=== PATIENT | female | born 1990 | race African-American/Black ===

== ENCOUNTER 2017-11-11 09:13 | Inpatient (IN) | payer MEDICAID ==
[2017-11-11] MEDS ORDERED: RINGERS SOLUTION,LACTATED 1,000 ML IV PRN (10:05)
[2017-11-11] MEDS ORDERED: PENICILLIN G-K 5 MILLION UNIT VIAL ONE ×2 (10:05→15:01)
[2017-11-11] MEDS ORDERED: RINGERS SOLUTION,LACTATED 500 ML IV PRN (10:05)
[2017-11-11] MEDS ORDERED: PENICILLIN G POTASSIUM 5,000,000 UNIT in DEXTROSE 5%-WATER 100 ML IV ONE (10:06)
[2017-11-11 10:17] LABS: APPEARANCE,URINE SLIGHTLY-CLOUDY; BILIRUBIN,URINE NEGATIVE (NEGATIVE); COLOR,URINE YELLOW; GLUCOSE, URINE NEGATIVE (NEGATIVE); KETONES,URINE NEGATIVE (NEGATIVE); LEUKOCYTE ESTERASE,URINE LARGE (NEGATIVE); NITRITE,URINE NEGATIVE (NEGATIVE); PROTEIN,URINE NEGATIVE (NEGATIVE); URINE SPECIFIC GRAVITY 1.011; UROBILINOGEN,URINE NEGATIVE mg/dL (<2.0)
[2017-11-11 10:30] LABS: URINE AMPHETAMINES SCREEN NEGATIVE; URINE BARBITURATES SCREEN NEGATIVE; URINE BENZODIAZEPINES SCREEN NEGATIVE; URINE COCAINE SCREEN NEGATIVE; URINE MARIJUANA (THC) SCREEN NEGATIVE; URINE METHADONE SCREEN NEGATIVE; URINE PHENCYCLIDINE SCREEN NEGATIVE
[2017-11-11 10:52] LABS: ABSOLUTE BASOPHILS # (AUTO) 0.1 10^3/uL (0.0-0.2); ABSOLUTE EOSINOPHILS # (AUTO) 0.2 10^3/uL (0.0-0.6); ABSOLUTE LYMPHOCYTES (AUTO) 1.8 10^3/uL (0.5-4.7); ABSOLUTE MONOCYTES (AUTO) 0.8 10^3/uL (0.1-1.4); ABSOLUTE NEUT (AUTO) 5.4 10^3/uL (1.7-8.2); BASOPHILS % (AUTO) 1.1 % (0-2); HEMOGLOBIN 9.8 g/dL (12.0-15.5); LYMPHOCYTES % (AUTO) 21.9 % (13-45); MEAN CORPUSCULAR HEMOGLOBIN 27.8 pg (27.0-33.4); MEAN CORPUSCULAR HGB CONC 33.7 g/dL (32.0-36.0); MEAN CORPUSCULAR VOLUME 82 fl (80-97); MONOCYTES % (AUTO) 9.9 % (3-13); PLATELET COUNT 316 10^3/uL (150-450); RED BLOOD COUNT 3.52 10^6/uL (3.72-5.28); RED CELL DISTRIBUTION WIDTH 15.3 % (11.5-14.0); SEGMENTED NEUTROPHILS % (AUTO) 65.1 % (42-78); TOTAL CELLS COUNTED % (AUTO) 100 %; WHITE BLOOD COUNT 8.3 10^3/uL (4.0-10.5)
[2017-11-11 11:08] LABS: ALANINE AMINOTRANSFERASE 45 U/L (9-52); ALBUMIN 3.7 g/dL (3.5-5.0); ALKALINE PHOSPHATASE 85 U/L (38-126); ANION GAP 10 (5-19); ASPARTATE AMINO TRANSFERASE 28 U/L (14-36); BILIRUBIN,DIRECT 0.1 mg/dL (0.0-0.4); BILIRUBIN,TOTAL 0.1 mg/dL (0.2-1.3); BLOOD UREA NITROGEN 4 mg/dL (7-20); CALCIUM 9.5 mg/dL (8.4-10.2); CARBON DIOXIDE 22 mmol/L (22-30); CHLORIDE 105 mmol/L (98-107); GLUCOSE 75 mg/dL (75-110); LDH 345 U/L (313-618); POTASSIUM 3.8 mmol/L (3.6-5.0); SODIUM 137.4 mmol/L (137-145); TOTAL PROTEIN 6.4 g/dL (6.3-8.2); URIC ACID 3.8 mg/dL (2.5-6.2)
[2017-11-11 11:14] LABS: UR PRO/CREAT RATIO RESULT 0.2 mg/mg (0.0-0.2); URINE CREATININE 85.8 mg/dL (16-327); URINE PROTEIN 18.7 mg/dL (<12)
[2017-11-11] MEDS ORDERED: EPHEDRINE SULFATE INJ 50 MG/1 ML AMPULE ONE (13:24)
[2017-11-11] MEDS ORDERED: FENTANYL/BUPIVACAINE/NS/PF 200 MCG/100 ML RTUINJ EPI ONE (13:24)
[2017-11-11] MEDS ORDERED: BUPIVACAINE HCL 0.25 % INJ/PF (2.5 MG/1 ML) 30 ML VIAL ONE (13:24)
[2017-11-11] MEDS ORDERED: PENICILLIN G-K 5 MILLION UNIT VIAL IV SCH (14:00)
[2017-11-11] MEDS ORDERED: LIDOCAINE 2% INJ-PF (20 MG/ML) 10 ML AMPUL ONE ×2 (14:30→18:34)
[2017-11-11] MEDS ORDERED: OXYTOCIN/NORMAL SALINE 20 UNIT/1,000 ML RTUINJ ONE (15:01)
[2017-11-11] MEDS ORDERED: AZITHROMYCIN INJ 500 MG VIAL IV ONE (15:01)
[2017-11-11] MEDS ORDERED: MISOPROSTOL 0.2 MG TABLET ONE (15:01)
[2017-11-11] MEDS ORDERED: LIDOCAINE 1% INJ-PF (10 MG/ML) 30 ML SDV ONE (15:01)
[2017-11-11] MEDS ORDERED: ONDANSETRON HCL INJ/PF 4 MG/2 ML SDV ONE (15:49)
[2017-11-11] MEDS ORDERED: AZITHROMYCIN 500 MG in DEXTROSE 5%-WATER 250 ML IV SCH (16:00)
[2017-11-11] MEDS ORDERED: PENICILLIN G POTASSIUM 2,500,000 UNIT in DEXTROSE 5%-WATER 50 ML IV SCH (16:21)
[2017-11-11] MEDS ORDERED: OXYTOCIN/NORMAL SALINE 20 UNIT/1,000 ML RTUINJ IV PRN ×2 (17:56→18:56)
[2017-11-11] MEDS ORDERED: ZOLPIDEM TARTRATE 5 MG TABLET PO PRN (18:56)
[2017-11-11] MEDS ORDERED: DIPH/PERTUSS(ACELL)/TETANUS VAC/PF 0.5 ML SYR (>=10YO) IM PRN (18:56)
[2017-11-11] MEDS ORDERED: MEASLES,MUMPS&RUBELLA VACC/PF 0.5 ML VIAL SUBCUT PRN (18:56)
[2017-11-11] MEDS ORDERED: ACETAMINOPHEN WITH CODEINE #3 TABLET PO PRN ×2 (18:56)
[2017-11-11] MEDS ORDERED: BENZOCAINE/MENTHOL AEROSOL SPRAY 56 ML TOP PRN (18:56)
[2017-11-11] MEDS ORDERED: DIBUCAINE 1% OINTMENT 28 GM TP PRN (18:56)
--- NOTE | 2017-11-11 19:54 | Delivery Summary ---
Del Sum A-C Datetime Report Generated by CPN: 11/11/2017 19:54 DELIVERY PERSONNEL DELIVERY PERSONNEL: [id number] Delivery Doctor:: Vika Alston CNM Nurse Technical Inspector Certified:: Vika Alston CNM Labor and Delivery Nurse:: Kanchan Wheeler RNconstruction or leak gang laborer Nurse:: Darlene Moulton RN Nursery Nurse:: Tiffanie Zhang RN Roto Mixer Operator/CONTOUR BAND SAW OPERATOR VERTICAL: Kelley Singh, ST Additional Personnel: : Sanjana Garcia, RNC MATERNAL INFORMATION Delivery Anesthesia: Epidural Medications After Delivery: Pitocin Bolus-Please Comment Meds After Delivery Comment: Pitocin 20 units in 1000 ml nss open for bolus Estimated Blood Loss (ml): 200 Maternal Complications: None Provider Comments: of viable female infant over intact perineum, head, shoulders, and body delivered without difficulty. with spontaneous cry and respirations, cord clamped X2, cut free, infant handed off to nursery staff. Spontaneous delivery of placenta via goetz mechanism, appears intact 3 VC, vagina and perineum inspected, no lacerations noted. Mother and infant in stable condition, routine pp care. LABOR SUMMARY EDC: 12/15/2017 00:00 No. Babies in Womb: 1 Attempted: No Labor Anesthesia: Epidural LABOR INFORMATION Reason for Induction: Not Applicable Onset of Labor: 11/11/2017 12:30 Complete Dilatation: 11/11/2017 18:35 Oxytocin: Augmentation Group B Beta Strep: positive Antibiotics # of Doses: 2 Antibiotics Time of Last Dose: 153 Name of Antibiotic Given: penicillin Steroids Given: None Reason Steroids Not Administered: Not Applicable MEMBRANES Membranes Rupture Method: Artificial Rupture of Membranes: 11/11/2017 16:45 Length of Rupture (hr): 1.97 Amniotic Fluid Color: Clear Amniotic Fluid Amount: Moderate Amniotic Fluid Odor: None STAGES OF LABOR Stage 1 hr: 6 Stage 1 min: 5 Stage 2 hr: 0 Stage 2 min: 8 Stage 3 hr: 0 Stage 3 min: 3 Total Time in Labor hr: 6 Total Time in Labor min: 16 VAGINAL DELIVERY Episiotomy: None Laceration #1: None Laceration Extension #1: N/A Laceration #2: None Laceration #3: None Laceration Repair: Not Applicable Sponge Count Correct: Yes Sharps Count Correct: Yes CSECTION DELIVERY Primary Indication: N/A Secondary Indication: N/A CSection Incidence: N/A Labor: N/A Elective: N/A CSection Incision: N/A BABY A INFORMATION Delivery Date/Time: 11/11/2017 18:43 Method of Delivery: Vaginal Born in Route : No : N/A Forceps: N/A Vacuum Extraction: N/A Shoulder Dystocia : No PRESENTATION/POSITION BABY A Presentation: Cephalic Cephalic Presentation: Vertex Vertex Position: Right Occipital Anterior Breech Presentation: N/A PLACENTA INFORMATION BABY A Placenta Delivery Time : 11/11/2017 18:46 Placenta Method of Delivery: Spontaneous Placenta Status: Delivered SCORES BABY A Heart Rate 1 min: >100 bpm Resp Effort 1 min: Good Cry Reflex Irritability 1 min: Cough or Sneeze or Pulls Away Muscle Tone 1 min: Active Motion Color 1 min: Blue/Pale SCORE 1 MIN: 8 Heart Rate 5 min: >100 bpm Resp Effort 5 min: Good Cry Reflex Irritability 5 min: Cough or Sneeze or Pulls Away Muscle Tone 5 min: Active Motion Color 5 min: Body Pulpotio Bareas, Extremities Blue SCORE 5 MIN: 9 INFANT INFORMATION BABY A Gestational Age at Delivery: 35.1 Gestational Status: Late - 34- 36.6 Weeks Infant Outcome : Liveborn Infant Condition : Stable Infant Sex: Female IDENTIFICATION BABY A Infant Verification Date/Time: 11/11/2017 19:01 ID Band Number: [id number] Mother's Name Verified: Yes Infant RN Verifying : Sanjana Camp RNC Additional Verifying Personnel: Kanchan Wheeler RN WEIGHT/LENGTH BABY A Infant Birthweight (gm): 2190 Infant Weight (lb): 4 Weight (oz): 13 Infant Length (in): 18.00 Infant Length (cm): 45.72 CORD INFORMATION BABY A No. Cord Vessels: 3 Nuchal Cord : N/A Cord Blood Taken: Yes-For Storage (Mom's Blood type +) Infant Suction: None ASSESSMENT BABY A Infant Complications: None Physical Findings at Delivery: Within Normal Limits Respirations: Appears Normal Skin to Skin: No Change Over/ALS Called : No Care By: R Nakul RN Transferred To: Remains with Mother BABY B INFORMATION : N/A SIGNATURES Assignment: Elsa Orellana MD Signature: with User ID: [email or web address] : with User ID: [email or web address]
[2017-11-11] MEDS ORDERED: IBUPROFEN 800 MG TABLET ONE (20:47)
[2017-11-11] MEDS: IBUPROFEN 800 MG TABLET PO SCH (20:49)
--- NOTE | 2017-11-11 21:22 | Admission Physical ---
Datetime Report Generated by CPN: 11/11/2017 21:22 CURRENT ADMISSION Hx Assessment: The History has been Reviewed and is Current Chief Complaint: Uterine Contractions Indication for Induction: Not Applicable Indication for Induction: , Intrauterine ; Active Labor; Intact Membranes Admit Plan: Admit to Unit; Initiate Labor Protocol ALLERGIES Medication Allergies: Yes Medication Allergies: red dye (11/11/2017) Medication Allergies: acetaminophen (11/18/2012) Latex: No Latex Allergies OBSTETRICAL HISTORY EDC: 12/15/2017 00:00 : 4 Para: 3 Term: 3 : 0 SAB: 0 IAB: 0 Ectopic: 0 Livin Cesareans: 0 VBACs: 0 Multiple Births: 0 Gestational Diabetes: No Rh Sensitization: No Incompetent Cervix: No GRIS: No Infertility: No ART Treatment: No Uterine Anomaly: No IUGR: No Hx Previous C/S: No Macrosomia: No Hx Loss/Stillborn: No PIH: Yes Hx : No Placenta Previa/Abruption: No Depression/PP Depression: Yes PTL/PROM: No Post Hemorrhage: No Current Procedures: Ultrasound; NST Obstetrical History Comments: - 2011 vacuum delivery - 2013 G3- 2015 G4- current SEE RECORDS Alcohol: Yes Alcohol Comments: drank beer up until 3 months when pt was not planning on keeping baby Marijuana : No Cocaine: No Other Illicit Drugs: No Cigarettes: Current Everyday Smoker. [id number] MEDICAL HISTORY Diabetes: No Blood Transfusion: No Pulmonary Disease (Asthma, TB): No Breast Disease: No Hypertension: Yes Nurse Liaison Surgery: No Heart Disease: No Hosp/Surgery: No Autoimmune Disorder: No Anesthetic Complications: No Kidney Disease: No Abnormal Pap Smear: No Neuro/Epilepsy: No Psychiatric Disorders: No Other Medical Diseases: No Hepatitis/Liver Disease: No Significant Family History: No Varicosities/Phlebitis: No Trauma/Violence : No Thyroid Dysfunction: Yes Medical History Comments: smoker, depression, quad screen positie for neural tube defects, anemia, GHTN, short interval , enlarged thyroid, significant ETOH exposure prior to 15 weeks, states she was supposed to take Iron for anemia but never did because she did not want to be constipated INFECTIOUS HISTORY Gonorrhea: No Genital Herpes: No Chlamydia: Yes Tuberculosis: No Syphilis: No Hepatitis: No HIV/AIDS Exposure: No Rash or Viral Illness: No HPV: No Infectious History Comments: Chlamydia AprilSeptember 2017 Treated in October PHYSICAL EXAM General: Normal HEENT: Normal Neurologic: Normal Thyroid: Deferred Heart: Normal Lungs: Normal Breast: Normal Back: Normal Abdomen: Normal Genitourinary Exam: Normal Extremities: Normal DTRs: Normal Pelvic Type: Adequate Physical Exam Comments: pelvis proven to 7lbs 4 oz. Vital Signs: Reviewed VAGINAL EXAM Dilatation: 6 Effacement: 70 Station: 0 Contraction Comments: 5-7 MEMBRANES Membranes: Intact FETUS A EGA: 35.1 Monitoring: External US FHR- Baseline: 135 Variability: Moderate 6-25bpm Accelerations: 15X15 Decelerations: None FHR Category: Category I Estimated Weight (gm): 2500 Presentation: Vertex Admit Comment: Pt presents with ctx every 4-5 minutes. Denies leaking, or bleeding, states active fetus. Cervical change from 5-7 cm. [facility]. 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 PIH with #2. Pt with elevated AFP this . GBS +, pcn + chlamydia 10/01/17, pt report tx, azithro IV 500 mg X1 now. Admit to L and D. PLANS FOR LABOR AND DELIVERY Labor and Delivery: None Pain Management: Epidural Feeding Preference: Breast Benefit of Breast Feed Discussed: Yes Circumcision: N/A INFORMED CONSENT Assignment: Elsa Orellana MD Signature: with User ID: [email or web address] : with User ID: [email or web address]
[2017-11-12] MEDS ORDERED: HYDRALAZINE HCL INJ/PF 20 MG/1 ML SDV IV ONE (05:00)
[2017-11-12] MEDS: IBUPROFEN 800 MG TABLET PO SCH ×2 (05:11→15:03)
[2017-11-12 07:29] LABS: HEMOGLOBIN 9.5 g/dL (12.0-15.5); MEAN CORPUSCULAR HEMOGLOBIN 27.7 pg (27.0-33.4); MEAN CORPUSCULAR VOLUME 81 fl (80-97); PLATELET COUNT 322 10^3/uL (150-450); RED BLOOD COUNT 3.45 10^6/uL (3.72-5.28); RED CELL DISTRIBUTION WIDTH 15.6 % (11.5-14.0); WHITE BLOOD COUNT 9.5 10^3/uL (4.0-10.5)
--- NOTE | 2017-11-12 09:30 | PDOC PROGRESS REPORT ---
Subjective-OB Subjective: Post Delivery Day: 27 year old. Denies any needs at this time Physical Exam (OB) Vital Signs: Temp Pulse Resp BP Pulse Ox 98.1 F 72 16 117/68 100 11/12/17 09:13 11/12/17 09:13 11/12/17 09:13 11/12/17 09:13 11/12/17 09:13 Intake & Output 11/11/17 11/12/17 11/13/17 06:59 06:59 06:59 Weight 67 kg - General General Appearance: Appears well - PIH/Pre-Eclampsia DTR's: 1 + Clonus: Negative Headache: Present Epigastric Pain: No Visual Changes: No - Lochia Lochia Amount: Scant < 10 ml Lochia Color: Rubra/Red - Abdomen Description: Soft, Round Hernia Present: No Bowel Sounds: Normoactive Flatus Presence: Present Stool: No Fundal Description: Firm, Midline Fundal Height: u/u - u/2 Objective-Diagnostic Laboratory: 11/12/17 07:07 11/11/17 10:37 11/11/17 11/11/17 11/11/17 08:30 10:37 10:37 WBC 8.3 RBC 3.52 L Hgb 9.8 L Hct 29.0 L MCV 82 MCH 27.8 MCHC 33.7 RDW 15.3 H Plt Count 316 Seg Neutrophils % 65.1 Lymphocytes % 21.9 Monocytes % 9.9 Eosinophils % 2.0 Basophils % 1.1 Absolute Neutrophils 5.4 Absolute Lymphocytes 1.8 Absolute Monocytes 0.8 Absolute Eosinophils 0.2 Absolute Basophils 0.1 Sodium 137.4 Potassium 3.8 Chloride 105 Carbon Dioxide 22 Anion Gap 10 BUN 4 L Creatinine 0.58 Est GFR ( Amer) > 60 Est GFR (Non-Af Amer) > 60 Glucose 75 Uric Acid 3.8 Calcium 9.5 Total Bilirubin 0.1 L AST 28 ALT 45 Alkaline Phosphatase 85 Total Protein 6.4 Albumin 3.7 Urine Color YELLOW Urine Appearance SLIGHTLY-CLOUDY Urine pH 7.0 Ur Specific [place] 1.011 Urine Protein NEGATIVE Urine Glucose (UA) NEGATIVE Urine Ketones NEGATIVE Urine Blood NEGATIVE Urine Nitrite NEGATIVE Ur Leukocyte Esterase LARGE H Urine WBC (Auto) 8 Urine RBC (Auto) 1 Blood Type Antibody Screen 11/11/17 11/12/17 10:37 07:07 WBC 9.5 RBC 3.45 L Hgb 9.5 L Hct 28.0 L MCV 81 MCH 27.7 MCHC 34.0 RDW 15.6 H Plt Count 322 Seg Neutrophils % Lymphocytes % Monocytes % Eosinophils % Basophils % Absolute Neutrophils Absolute Lymphocytes Absolute Monocytes Absolute Eosinophils Absolute Basophils Sodium Potassium Chloride Carbon Dioxide Anion Gap BUN Creatinine Est GFR ( Amer) Est GFR (Non-Af Amer) Glucose Uric Acid Calcium Total Bilirubin AST ALT Alkaline Phosphatase Total Protein Albumin Urine Color Urine Appearance Urine pH Ur Specific [place] Urine Protein Urine Glucose (UA) Urine Ketones Urine Blood Urine Nitrite Ur Leukocyte Esterase Urine WBC (Auto) Urine RBC (Auto) Blood Type B POSITIVE Antibody Screen NEGATIVE
[2017-11-12] MEDS: SENNOSIDES/DOCUSATE 8.6-50 MG 1 EACH TABLET PO SCH (09:53)
[2017-11-12] MEDS: DOCUSATE SODIUM 100 MG CAPSULE PO SCH ×2 (09:54→18:11)
[2017-11-12] MEDS: PRENATAL VITAMIN W DHA CAPSULE PO SCH (09:55)
[2017-11-12] MEDS: FERROUS SULFATE 325 MG TABLET PO SCH ×2 (09:55→18:11)
[2017-11-12 21:27] VITALS: BP 131/86
[2017-11-13] MEDS: IBUPROFEN 800 MG TABLET PO SCH ×3 (00:28→13:39)
[2017-11-13] MEDS: DOCUSATE SODIUM 100 MG CAPSULE PO SCH ×2 (09:40→17:31)
[2017-11-13] MEDS: FERROUS SULFATE 325 MG TABLET PO SCH ×2 (09:41→17:32)
[2017-11-13] MEDS: PRENATAL VITAMIN W DHA CAPSULE PO SCH (09:41)
[2017-11-13] MEDS: SENNOSIDES/DOCUSATE 8.6-50 MG 1 EACH TABLET PO SCH (09:41)
--- NOTE | 2017-11-13 11:19 | PDOC PROGRESS REPORT ---
Subjective-OB Subjective: Post Delivery Day: 27 year old. Denies any needs at this time. Ready to go home later today after baby is discharged. Physical Exam (OB) Vital Signs: Temp Pulse Resp BP Pulse Ox 98.2 F 76 18 131/86 H 100 11/12/17 20:32 11/12/17 20:32 11/12/17 20:32 11/12/17 20:32 11/12/17 16:12 Intake & Output 11/12/17 11/13/17 11/14/17 06:59 06:59 06:59 Intake Total 400 Balance 400 Weight 67 kg - PIH/Pre-Eclampsia DTR's: 1 + Clonus: Negative Headache: Absent Epigastric Pain: No Visual Changes: No - Lochia Lochia Amount: Scant < 10 ml Lochia Color: Rubra/Red - Abdomen Description: Soft, Round Hernia Present: No Bowel Sounds: Normoactive Flatus Presence: Present Stool: No Fundal Description: Firm, Midline Fundal Height: u/u - u/2 Objective-Diagnostic Laboratory: 11/12/17 07:07 11/11/17 10:37
--- NOTE | 2017-11-13 11:25 | PDOC DISCHARGE SUMMARY ---
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 Is this a current diagnosis for this admission?: Yes (3) Chlamydia infection affecting Is this a current diagnosis for this admission?: Yes (4) Group B streptococcal infection during Is this a current diagnosis for this admission?: Yes (5) Insufficient antepartum care Is this a current diagnosis for this admission?: Yes (6) delivery Is this a current diagnosis for this admission?: Yes (7) labor Is this a current diagnosis for this admission?: Yes Discharge Data - Discharge Medication Home Medications: Cetirizine HCl [Zyrtec] 10 mg PO PRN PRN 11/11/17 Vit,Calc76/Iron/Folic [Pnv 29-1 Tablet] 1 each PO DAILY 11/11/17 Gestational Age: 35.1 wks Reason(s) for Admission: Onset of Labor, Labor Procedures: Ultrasound Intrapartum Procedure(s): Spontaneous Vaginal Delivery - [place] Data Baby 1 Female at 1 minute: 8 at 5 minutes: 9 Weight: 2.183 kg Home with Mother: Yes Complications: Yes - 35 wk EGA - Diagnosis Test Laboratory: Temp Pulse Resp BP Pulse Ox 98.2 F 76 18 131/86 H 100 11/12/17 20:32 11/12/17 20:32 11/12/17 20:32 11/12/17 20:32 11/12/17 16:12 11/11/17 11/11/17 11/12/17 08:30 10:37 07:07 RBC 3.52 L 3.45 L Hgb 9.8 L 9.5 L Hct 29.0 L 28.0 L Urine Opiates Screen NEGATIVE - Discharge information/Instructions Discharge Activity: Activity As Tolerated, Balance Activity w/Rest, Pelvic Rest , Slowly Increase Activity, No tub bath Discharge Diet: Regular Disposition: HOME, SELF-CARE Follow up with: [facility] in: 4, Weeks
== END 2017-11-13 18:33 | disposition home or self-care (01) | DRG 774 ==
LOC: LC 09:13 → LR 12:19 → 2S 21:20
PROVIDERS: ADMIT Student in an Organized Health Care Education/Training Program; ATTEND Student in an Organized Health Care Education/Training Program
PROC: 10E0XZZ Delivery of Products of Conception, External Approach (ICD-10-PCS; principal; 2017-11-11)
DX: O60.14X0 Preterm labor third trimester with preterm delivery third trimester, not applicable or unspecified (principal); O98.82 Other maternal infectious and parasitic diseases complicating childbirth; O99.824 Streptococcus B carrier state complicating childbirth; O13.4 Gestational [pregnancy-induced] hypertension without significant proteinuria, complicating childbirth; O99.334 Smoking (tobacco) complicating childbirth; O99.02 Anemia complicating childbirth; O99.344 Other mental disorders complicating childbirth; D64.9 Anemia, unspecified; F32.9 Major depressive disorder, single episode, unspecified; F17.210 Nicotine dependence, cigarettes, uncomplicated; Z3A.35 35 weeks gestation of pregnancy; Z37.0 Single live birth
CPT/HCPCS: 36415; 80053; 80307; 81001; 82570; 83615; 84156; 84550; 85025; 85027; 86592; 86850; 86900; 86901; J0360; J0456; J2405; J2540; J2590; J3490; J7060

== ENCOUNTER 2017-12-26 07:13 | Emergency (ER) | payer MEDICAID ==
--- NOTE | 2017-12-26 08:29 | ER Document Report ---
HPI - HPI Patient complains to provider of: red eye, pink eye Onset: Yesterday Pain Level: 1 Context: 27 yo contact lense weared c/o right eye reddness, son has pink eye. Delivered 6 weeks ago, at [facility], no 6 week appt scheduled. Bottlefeeding. no hx PIH, has had some HTN between pregnancies. No chest pain, abd pain, headache. Associated Symptoms: None Exacerbated by: Denies Relieved by: Denies - ROS ROS below otherwise negative: Yes Systems Reviewed and Negative: Yes All other systems reviewed and negative - EENT EENT: REPORTS: Eye problems - right eye - REPRODUCTIVE Reproductive: DENIES: : Past Medical History - General Information source: Patient - Social History Smoking Status: Current Every Day Smoker Chew tobacco use (# tins/day): No Frequency of alcohol use: None Drug Abuse: None Lives with: Family Family History: None Patient has suicidal ideation: No Patient has homicidal ideation: No Neurological Medical History: Reports: Hx Migraine Renal/ Medical History: Denies: Hx Peritoneal Dialysis Surgical Hx: Negative - Immunizations Hx Diphtheria, Pertussis, Tetanus Vaccination: Yes Vertical Provider Document - CONSTITUTIONAL Agree With Documented VS: Yes Exam Limitations: No Limitations General Appearance: No Apparent Distress - INFECTION CONTROL TRAVEL OUTSIDE OF THE [place] IN LAST 30 DAYS: No - HEENT HEENT: Conjuctival Injection - mild, no fluorescein uptake. PERRL, Normocephalic - NECK Neck: Supple. negative: Lymphadenopathy-Left, Lymphadenopathy-Right - RESPIRATORY Respiratory: Breath Sounds Normal, No Respiratory Distress O2 Sat by Pulse Oximetry: 97 - CARDIOVASCULAR Cardiovascular: Regular Rate, Regular Rhythm Course - Re-evaluation Re-evalutation: 12/26/17 09:[address] Lydia Tinsley that is on-call for CEO and she recommends getting a CBC, comprehensive and a urinalysis to look for protein to make sure that this is not preeclampsia high blood pressure. If this is isolated blood pressure she agrees treating with an antihypertensive of my choice because she is not breast-feeding. 12/26/17 11:40 pt drinks 10-12 beers 3 times per day and takes benadryl. Liver enzymes are mildly elevated. no protein in the urine. I called Dr.Weaver Tinsley again, she is locums, ok with lisinopril, pt to call for follow up appt first thing thursday velasquez, Will give her copies of the labwork done here today, and dispensed the besivance eye drops for her right conjunctivitis 12/26/17 11:43 12/26/17 11:44 - Vital Signs Vital signs: Temp Pulse Resp BP Pulse Ox 98.3 F 89 16 138/114 H 97 12/26/17 07:50 12/26/17 07:50 12/26/17 07:50 12/26/17 07:50 12/26/17 07:50 - Laboratory Result Diagrams: 12/26/17 10:16 12/26/17 10:16 Discharge - Discharge Clinical Impression: Elevated liver enzymes Right conjunctivitis Qualifiers: Conjunctivitis type: acute Acute conjunctivitis type: unspecified Qualified Code(s): H10.31 - Unspecified acute conjunctivitis, right eye Hypertension Qualifiers: Hypertension type: unspecified Qualified Code(s): I10 - Essential (primary) hypertension Condition: Good Disposition: HOME, SELF-CARE Instructions: Angiotensin Converting Enzyme Inhibitor Medication ([facility]), Conjunctivitis ([facility]), Eyedrop Use ([facility]), High Blood Pressure, Requiring Treatment ([facility]), Liver Function Abnormality ([facility]) Additional Instructions: see obgyn on thursday for recheck copies of all labs given to you for your check up liver enzymes will need to be repeated no alxohol to er any worsening symptoms eye drops 1 drop right eye three times per day for 7 days see the eye doctor next week for recheck Prescriptions: Lisinopril 10 mg PO DAILY #30 tablet Referrals: JULIO VARGAS MD [ACTIVE STAFF] - 12/28/17 DONAVAN YANG MD [ACTIVE STAFF] - 12/28/17
[2017-12-26] MEDS ORDERED: BESIFLOXACIN HCL 0.6% OPH SUSP 5 ML BOTTLE OD ONE (09:58)
[2017-12-26 10:37] LABS: ABSOLUTE EOSINOPHILS # (AUTO) 0.2 10^3/uL (0.0-0.6); ABSOLUTE LYMPHOCYTES (AUTO) 1.8 10^3/uL (0.5-4.7); ABSOLUTE MONOCYTES (AUTO) 0.7 10^3/uL (0.1-1.4); ABSOLUTE NEUT (AUTO) 7.5 10^3/uL (1.7-8.2); BASOPHILS % (AUTO) 0.3 % (0-2); EOSINOPHILS % (AUTO) 2.4 % (0-6); HEMATOCRIT 38.2 % (36.0-47.0); HEMOGLOBIN 12.4 g/dL (12.0-15.5); LYMPHOCYTES % (AUTO) 17.8 % (13-45); MEAN CORPUSCULAR HEMOGLOBIN 26.9 pg (27.0-33.4); MEAN CORPUSCULAR HGB CONC 32.5 g/dL (32.0-36.0); MEAN CORPUSCULAR VOLUME 83 fl (80-97); MONOCYTES % (AUTO) 6.9 % (3-13); PLATELET COUNT 471 10^3/uL (150-450); RED BLOOD COUNT 4.62 10^6/uL (3.72-5.28); RED CELL DISTRIBUTION WIDTH 16.5 % (11.5-14.0); SEGMENTED NEUTROPHILS % (AUTO) 72.6 % (42-78); TOTAL CELLS COUNTED % (AUTO) 100 %; WHITE BLOOD COUNT 10.3 10^3/uL (4.0-10.5)
[2017-12-26 10:47] LABS: APPEARANCE,URINE CLEAR; BILIRUBIN,URINE NEGATIVE (NEGATIVE); COLOR,URINE YELLOW; GLUCOSE, URINE NEGATIVE (NEGATIVE); KETONES,URINE NEGATIVE (NEGATIVE); LEUKOCYTE ESTERASE,URINE TRACE (NEGATIVE); NITRITE,URINE NEGATIVE (NEGATIVE); PROTEIN,URINE NEGATIVE (NEGATIVE); URINE SPECIFIC GRAVITY 1.025; UROBILINOGEN,URINE NEGATIVE mg/dL (<2.0)
[2017-12-26 10:56] LABS: ALANINE AMINOTRANSFERASE 96 U/L (9-52); ALKALINE PHOSPHATASE 88 U/L (38-126); ANION GAP 15 (5-19); ASPARTATE AMINO TRANSFERASE 66 U/L (14-36); BILIRUBIN,DIRECT 0.4 mg/dL (0.0-0.4); BILIRUBIN,TOTAL 0.7 mg/dL (0.2-1.3); BLOOD UREA NITROGEN 11 mg/dL (7-20); CARBON DIOXIDE 25 mmol/L (22-30); CHLORIDE 105 mmol/L (98-107); GLUCOSE 73 mg/dL (75-110); POTASSIUM 4.2 mmol/L (3.6-5.0); SODIUM 145.2 mmol/L (137-145); TOTAL PROTEIN 8.5 g/dL (6.3-8.2)
[2017-12-26] MEDS ORDERED: LISINOPRIL 10 MG TABLET PO ONE (11:48)
[2017-12-26 13:22] VITALS: BP 144/86
== END 2017-12-26 12:30 | disposition home or self-care (01) ==
LOC: ER 07:13
DX: H10.31 Unspecified acute conjunctivitis, right eye (principal); I10 Essential (primary) hypertension; R74.8 Abnormal levels of other serum enzymes; F17.200 Nicotine dependence, unspecified, uncomplicated
CPT/HCPCS: 99283; 36415; 85025; 80053; 81001; J3490

== ENCOUNTER 2018-02-09 20:57 | Emergency (ER) | payer MEDICAID ==
[2018-02-09 21:16] VITALS: BP 160/101
--- NOTE | 2018-02-09 21:35 | ER Document Report ---
ED General - General Chief Complaint: Lice Stated Complaint: HEAD ITCHING Time Seen by Provider: 02/09/18 21:31 Mode of Arrival: Ambulatory Information source: Patient Notes: 27-year-old female presents with concerns for itching in her hair and possible lice. pt notes 1 of her children has been scratching his head for the past few months and she did not think anything of it. Patient notes that the child has less now TRAVEL OUTSIDE OF THE [place] IN LAST 30 DAYS: No - HPI Onset: Just prior to arrival Onset/Duration: Sudden Quality of pain: No pain Severity: Mild Pain Level: Denies Associated symptoms: Other Exacerbated by: Denies Relieved by: Denies Similar symptoms previously: No Recently seen / treated by doctor: No - Related Data Allergies/Adverse Reactions: red dye Allergy (Verified 02/09/18 21:06) Past Medical History - Social History Smoking Status: Never Smoker Cigarette use (# per day): No Chew tobacco use (# tins/day): No Smoking Education Provided: No Family History: Other - Child has lice - Past Medical History Cardiac Medical History: Denies: Hx Coronary Artery Disease, Hx Hypertension Pulmonary Medical History: Denies: Hx Asthma Neurological Medical History: Reports: Hx Migraine Endocrine Medical History: Denies: Hx Diabetes Mellitus Type 1, Hx Diabetes Mellitus Type 2 Renal/ Medical History: Denies: Hx Peritoneal Dialysis - Immunizations Hx Diphtheria, Pertussis, Tetanus Vaccination: Yes Review of Systems - Review of Systems Notes: REVIEW OF SYSTEMS: CONSTITUTIONAL : Denies fever, chills, or sweats. Denies recent illness. EENT: Admits to itching of head CARDIOVASCULAR: Denies chest pain. Denies palpitations or racing or irregular heart beat. Denies ankle edema. RESPIRATORY: Denies cough, cold, or chest congestion. Denies shortness of breath, difficulty breathing, or wheezing. GASTROINTESTINAL: Denies abdominal pain or distention. Denies nausea, vomiting , or diarrhea. Denies blood in vomitus, stools, or per rectum. Denies black, tarry stools. Denies constipation. GENITOURINARY: Denies difficulty urinating, painful urination, burning, frequency, blood in urine, or discharge. FEMALE GENITOURINARY: Denies vaginal bleeding, heavy or abnormal periods, irregular periods. Denies vaginal discharge or odor. MUSCULOSKELETAL: Denies back or neck pain or stiffness. Denies joint pain or swelling. SKIN: Denies rash, lesions or sores. HEMATOLOGIC : Denies easy bruising or bleeding. LYMPHATIC: Denies swollen, enlarged glands. NEUROLOGICAL: Denies confusion or altered mental status. Denies passing out or loss of consciousness. Denies dizziness or lightheadedness. Denies headache. Denies weakness or paralysis or loss of use of either side. Denies problems with gait or speech. Denies sensory loss, numbness, or tingling. Denies seizures. PSYCHIATRIC: Denies anxiety or stress. Denies depression, suicidal ideation, or homicidal ideation. ALL OTHER SYSTEMS REVIEWED AND NEGATIVE. Dictation was performed using [employer] voice recognition software PHYSICAL EXAMINATION: GENERAL: Well-appearing, well-nourished and in no acute distress. HEAD: Atraumatic, normocephalic. Lice noted in scalp EYES: Pupils equal round extraocular movements intact, conjunctiva are normal. ENT: Nares patent NECK: Normal range of motion LUNGS: No respiratory distress Musculoskeletal: Normal range of motion NEUROLOGICAL: Normal speech, normal gait. PSYCH: Normal mood, normal affect. SKIN: Warm, Dry, normal turgor, no rashes or lesions noted. Physical Exam - Vital signs Vitals: Temp Pulse Resp BP Pulse Ox 98.6 F 93 18 160/101 H 100 02/09/18 21:11 02/09/18 21:11 02/09/18 21:11 02/09/18 21:11 02/09/18 21:11 Course - Re-evaluation Re-evalutation: 02/10/18 00:14 Patient's presentation most consistent with head lice, she will be started on medication strict return precautions provided as well as follow-up for children who will probably all have lice After performing a Medical Screening Examination, I estimate there is LOW risk for any life threatening rash. At this time the patient looks extremely well and there are no signs of systemic infection, however this may change at any time and the rash may change. I have reevaluated this patient multiple times and no significant life threatening changes are noted. The patient and I have discussed the diagnosis and risks, and we agree with discharging home with close follow-up with the understanding that symptoms and presentations can change. We also discussed returning to the Emergency Department immediately if new or worsening symptoms occur. We have discussed the symptoms which are most concerning (e.g., changing or worsening pain, fever, numbness, weakness, cool or painful digits) that necessitate immediate return. - Vital Signs Vital signs: Temp Pulse Resp BP Pulse Ox 98.6 F 93 18 160/101 H 100 02/09/18 21:11 02/09/18 21:11 02/09/18 21:11 02/09/18 21:11 02/09/18 21:11 Discharge - Discharge Clinical Impression: Lice Condition: Stable Disposition: HOME, SELF-CARE Instructions: Head Lice ([facility]) Additional Instructions: Follow up with your physician tomorrow for further care or return to the ED IMMEDIATELY if symptoms worsen or new concerns occur. If you cannot afford to follow up with your primary care physician a list of low cost clinics have been provided at the end of your discharge papers as well. Prescriptions: Permethrin [Nix 1% Lotion 59 Ml Bottle] 1 applic TP ASDIR PRN #1 bottle PRN Reason:
== END 2018-02-09 22:00 | disposition home or self-care (01) ==
LOC: ER 20:57
DX: B85.0 Pediculosis due to Pediculus humanus capitis (principal); Z91.048 Other nonmedicinal substance allergy status
CPT/HCPCS: 99282